=== PATIENT | male | born 1995 ===

== ENCOUNTER 2020-04-01 08:53 | Emergency (ER) | payer OTHER ==
[2020-04-01 08:59] VITALS: BP 125/80
[2020-04-01] MEDS ORDERED: ONDANSETRON 4 MG ODT TAB PO ONE (10:06)
--- NOTE | 2020-04-01 10:17 | Emergency Department Report ---
Vomiting/Diarrhea - HPI Chief Complaint: Nausea/Vomiting/Diarrhea Stated Complaint: ETOH PREVIOUS NIGHT Time Seen by Provider: 04/01/20 09:48 Symptoms: Yes Able to Tolerate Fluids, No Watery Diarrhea, No Bloody diarrhea, No Fever, No Recent Unusual Foods, No Recent Untreated Water, No Recent use of Antibiotics, No Family w/ Similar Symptoms, No Contacts w/ Similar Symptoms, No Rash, No Hematuria, No Recent URI Symptoms Other History: This is a pleasant 23-year-old male presents the emergency department chief complaint nausea and vomiting since 4 AM this morning. Patient reports last night he drank 5 alcoholic beverages and he did not eat anything and woke up feeling this way. He states he did have some abdominal pain earlier which has now resolved. He denies any bloody or bilious vomiting. He denies any diarrhea. Melena, hematochezia, fever, chills, night sweats, headache, dizziness, blurry vision, diarrhea, chest pain, shortness of breath or any other associated symptoms. ED Review of Systems ROS: Stated complaint: ETOH PREVIOUS NIGHT Other details as noted in HPI Comment: All other systems reviewed and negative Constitutional: denies: chills, fever Eyes: denies: eye pain, eye discharge, vision change ENT: denies: ear pain, throat pain Respiratory: denies: cough, shortness of breath, wheezing Cardiovascular: denies: chest pain, palpitations Endocrine: no symptoms reported Gastrointestinal: as per HPI, abdominal pain, nausea, vomiting. denies: diarrhea Genitourinary: denies: urgency, dysuria Musculoskeletal: denies: back pain, joint swelling, arthralgia Skin: denies: rash, lesions Neurological: denies: headache, weakness, paresthesias Psychiatric: denies: anxiety, depression Hematological/Lymphatic: denies: easy bleeding, easy bruising ED Past Medical Hx - Past Medical History Previous Medical History?: No - Surgical History Past Surgical History?: Yes Additional Surgical History: right ACL repair - Medications Home Medications: Home Medications Medication Instructions Recorded Confirmed Last Taken Type Ondansetron [Zofran Odt] 4 mg PO Q8HR #30 tab.rapdis 04/01/20 Unknown Rx Vomiting Diarrhea Exam - Exam General: Vital signs noted. No distress. Alert and acting appropriately. HEENT: Yes Moist Mucous Membranes, No Pharyngeal Erythema, No Pharyngeal Exudates, No Rhinorrhea, No Conjuctival Injection, No Frontal Tenderness, No Maxillary Tenderness Neck: No Adenopathy, No Rigidity Lungs: Yes Clear Lung Sounds, Yes Good Air Exchange, No Wheezes, No Stridor, No Cough, No Nasal Flaring, No Retractions, No Use of Accessory Muscles Heart exam: Regular: Yes, Murmur: No, Tachycardia: No Abdomen: Tenderness: No (Negative McBurney's point tenderness, negative Cohen sign, no rebound or guarding), Peritoneal Signs: No, Distention: No, Hyperactive Bowel sounds: No Skin exam: Rash: No, Edema: No, Normal turgor: Yes Neurologic: Alert and oriented, no deficits. Musculoskeletal: Unremarkable. ED Course Vital Signs 04/01/20 08:55 Temperature 97.9 F Pulse Rate 57 L Blood Pressure 125/80 [Right] O2 Sat by Pulse 100 Oximetry - Reevaluation(s) Reevaluation #1: 04/01/20 10:17 Patient nontoxic in no acute distress. Vital signs are stable. Abdominal exam is unremarkable. I will treat the patient's nausea and if he is able tolerate p.o. fluids will discharge him in stable condition with outpatient follow-up with his primary care doctor. Suspect is likely secondary to the alcohol. I did offer work-up however he politely declined and just wanted to stop vomiting. ED Medical Decision Making - Medical Decision Making Patient is feeling much better. On reevaluation he was able to tolerate p.o. fluids well. I will send him home with some Zofran and outpatient follow-up with primary care doctor. Recommended clear liquid and brat diet and return to the emerge department any change or worsening symptoms. He verbalized understand the diagnosis, treatment plan and follow-up instructions all of his questions were answered. - Differential Diagnosis Enteritis, EtOH use, gastritis Critical care attestation.: If time is entered above; I have spent that time in minutes in the direct care of this critically ill patient, excluding procedure time. ED Disposition Clinical Impression: Nausea and vomiting Qualifiers: Vomiting type: unspecified Vomiting Intractability: non-intractable Qualified Code(s): R11.2 - Nausea with vomiting, unspecified Disposition: DC-01 TO HOME OR SELFCARE Is pt being admited?: No Condition: Stable Instructions: Nausea and Vomiting, Adult Prescriptions: Ondansetron [Zofran Odt] 4 mg PO Q8HR #30 tab.rapdis Referrals: DIANE DIETRICH MD [Staff Physician] - 3-5 Days Forms: Work/School Release Form(ED) Time of Disposition: 11:22
== END 2020-04-01 12:04 | disposition home or self-care (01) ==
LOC: ED 08:53
DX: R11.2 Nausea with vomiting, unspecified (principal); Z79.899 Other long term (current) drug therapy
CPT/HCPCS: 99283; Q0162